=== PATIENT | female | born 1990 | race Asian ===

== ENCOUNTER 2018-12-07 16:49 | Emergency (ER) | payer OTHER ==
[~2018-12-07] VITALS: Ht 165.1 cm; Wt 103.1 kg
[2018-12-07 16:52] VITALS: BP 133/78
[2018-12-07] MEDS ORDERED: KETOROLAC 30 MG/1 ML IM ONE (18:00)
[2018-12-07 18:04] LABS: HCG UR SG 1.022 (1.003-1.030); MICROSCOPIC AUTO
[2018-12-07 18:06] LABS: CULTURE INDICATED? YES
[2018-12-07 18:08] LABS: BASOPHILS # (AUTO) 0.09 x10^3/uL (0-0.1); BASOPHILS % (AUTO) 1 % (0-1); EOSINOPHILS % (AUTO) 1 % (1-7); LYMPHOCYTES # (AUTO) 2.03 x10^3/uL (1-3.4); LYMPHOCYTES % (AUTO) 19 % (22-44); MD NO; MEAN CORPUSCULAR HEMOGLOBIN 29.3 pg (27.0-34.8); MEAN CORPUSCULAR HGB CONC 34.3 g/dL (32.4-35.8); MEAN CORPUSCULAR VOLUME 85.2 fL (80-100); MEAN PLATELET VOLUME 7.6 fL (7.4-10.4); MONOCYTES # (AUTO) 0.55 x10^3/uL (0.2-0.8); MONOCYTES % (AUTO) 5 % (2-9); NEUTROPHILS # (AUTO) 7.95 x10^3/uL (1.8-6.8); NEUTROPHILS % (AUTO) 74 % (42-75); PLATELET COUNT 365 x10^3/uL (130-400); RED BLOOD COUNT 4.85 x10^6/uL (3.82-5.3); RED CELL DISTRIBUTION WIDTH 13.2 % (9.6-15.2)
[2018-12-07 18:18] LABS: ANION GAP 6 mmol/L (5-15); CALCIUM 8.7 mg/dL (8.5-10.1); CHLORIDE 109 mmol/L (98-107)
[2018-12-07 18:19] LABS: ALBUMIN 3.7 g/dL (3.4-5.0)
[2018-12-07] MEDS ORDERED: KETOROLAC 30 MG/1 ML ONE (18:29)
== END 2018-12-07 19:24 | disposition home or self-care (01) ==
LOC: ED 19:13
DX: N30.01 Acute cystitis with hematuria (principal); R11.0 Nausea
CPT/HCPCS: 36415; 76830; 80048; 81001; 81025; 82040; 85025; 87077; 87086; 87186; 93005; 96372; 99284; J1885